=== PATIENT | male | born 1990 | race Caucasian/White ===

== ENCOUNTER 2023-05-02 03:08 | Emergency (ER) | payer SELFPAY ==
[2023-05-02 03:11] VITALS: BP 151/99; PULSE 85; RESP 16; TEMP 36.4; O2SAT 99; BMI 25.1
--- NOTE | 2023-05-02 03:26 | ED.URI1 ---
HPI - URI/Sore Throat General Chief Complaint: Upper Respiratory Infection Stated Complaint: COUGH Time Seen by Provider: 05/02/23 03:18 Source: patient Limitations: no limitations History of Present Illness HPI Narrative: Developed cold symptoms 4-5 days ago. No relief with OTC meds. Tonight he took a deep breath and had a vigorous cough and suddenly felt pain in the mid left back. Now it hurts to take a deep breath or to move the torso. No relief with tylenol. He is uncertain about fevers at home. He said that he felt hot since the pain started. Related Data Previous Rx's Medication Instructions Recorded cduzehlnupoopcz-asafnbtzhgmqyik-PO 5 ml PO Q6H PRN cold symptoms #118 05/02/23 2 mg-30 mg-10 mg/5 mL oral syrup mL (Bromfed DM) methocarbamol 750 mg tablet 750 mg PO Q6H PRN pain #30 tabs 05/02/23 nabumetone 750 mg tablet 750 mg PO BID PRN pain #14 tabs 05/02/23 Allergies Allergy/AdvReac Type Severity Reaction Status Date / Time No Known Drug Allergies Allergy Verified 05/02/23 03:13 PFSH PFS Social History Smoking status: Current every day smoker Exam Narrative Exam Narrative: Nurses notes and vital signs reviewed and patient is not hypoxic. afebrile General: Well-appearing and in no apparent distress. Skin: Warm, dry, no pallor noted. No rash. Head: Normocephalic, atraumatic. Neck: Supple, non-tender. cervical lymphadenopathy Eye: Pupils are equal, round and EOMI. No scleral icterus. Ears, Nose, Mouth, and Throat: TM are clear, mild nasal mucosal hypertrophy. Oral mucosa is moist, no posterior oropharynx erythema, uvula is mid-line Cardiovascular: Regular Rate and Rhythm without murmur, gallop or rub. Respiratory: No accessory muscle use or respiratory distress. Lungs are clear to auscultation, no wheezing, rales or rhonchi Back: No midline thoracic or lumbar vertebral tenderness. diffuse muscular tenderness to the posterior left torso just lateral to the thoracic spine Musculoskeletal: normal ROM Neurological: A&O x4. No cranial nerve dysfunction observed. No truncal ataxia. Moves all extremities. Sensation intact. Psychiatric: Cooperative and interactive. Normal mood and affect. Constitutional Vital Signs, click to edit/add: Last Vital Signs Temp 97.5 F L 05/02/23 03:11 Pulse 85 05/02/23 03:11 Resp 16 05/02/23 03:11 BP 151/99 H 05/02/23 03:11 Pulse Ox 99 05/02/23 03:11 O2 Del Method Room Air 05/02/23 03:11 Course Vital Signs Vital signs: Vital Signs Temperature 97.5 F L 05/02/23 03:11 Pulse Rate 85 05/02/23 03:11 Respiratory Rate 16 05/02/23 03:11 Blood Pressure 151/99 H 05/02/23 03:11 Pulse Oximetry 99 05/02/23 03:11 Oxygen Delivery Method Room Air 05/02/23 03:11 Temperature 97.5 F L 05/02/23 03:11 Pulse Rate 85 05/02/23 03:11 Respiratory Rate 16 05/02/23 03:11 Blood Pressure 151/99 H 05/02/23 03:11 Pulse Oximetry 99 05/02/23 03:11 Oxygen Delivery Method Room Air 05/02/23 03:11 MDM - URI/Sore Throat MDM Narrative Medical decision making narrative: patient presents with upper respiratory symptoms as well as pain in the left posterior torso after a coughing fit. He was given IM Toradol and oral Robaxin. He was discharged home with a prescription for Bromfed-DM, Relafen and Robaxin. Discharge Plan Discharge Chief Complaint: Upper Respiratory Infection Clinical Impression: Upper respiratory infection, Back pain Patient Disposition: Home, Self-Care Time of Disposition Decision: 03:29 Prescriptions / Home Meds: New nabumetone 750 mg tablet 750 mg PO BID PRN (Reason: pain) Qty: 14 0RF methocarbamol 750 mg tablet 750 mg PO Q6H PRN (Reason: pain) Qty: 30 0RF quibyiiihrotcln-oxpjyzxjd-GN [Bromfed DM] 2-30-10 mg/5 mL syrup 5 ml PO Q6H PRN (Reason: cold symptoms) Qty: 118 0RF Instructions: Upper Respiratory Infection (ED), Back Pain (ED) Stand Alone Forms: Portal Instructions Referrals: Rory Bassett DO [Primary Care Provider] - 1 week Discharge Date/Time: 05/02/23 04:01
[2023-05-02] MEDS: METHOCARBAMOL 500 MG TABLET 1000 MG PO (03:54)
[2023-05-02] MEDS: KETOROLAC TROMETHAMINE 60 MG/2 ML VIAL IM (03:55)
== END 2023-05-02 04:01 | disposition home or self-care (01) ==
PROVIDERS: Emergency Provider Emergency Medicine; PCP Family Medicine
DX: J06.9 Acute upper respiratory infection, unspecified (principal); M54.9 Dorsalgia, unspecified; F17.210 Nicotine dependence, cigarettes, uncomplicated
CPT/HCPCS: 96372; 99284

== ENCOUNTER 2024-02-12 12:11 | Outpatient (RCR) | payer OTHER, SELFPAY | END 2024-02-27 16:34 | disposition home or self-care (01) | LOC: PT 12:11 | PROVIDERS: PCP Family Medicine; Visit Provider Physician Assistant | DX: S83.92XD Sprain of unspecified site of left knee, subsequent encounter (principal) | CPT/HCPCS: 97010; 97014; 97110; 97112; 97162 ==

== ENCOUNTER 2024-06-09 06:44 | Emergency (ER) | payer SELFPAY ==
[2024-06-09] VITALS (9 sets, daily range): BP systolic 120–134; BP diastolic 87–93; PULSE 77–87; TEMP 36.6; O2SAT 95–97; BMI 26.5
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
--- NOTE | 2024-06-09 07:04 | XR_ITS ---
The [address] [address] Patient Name: JARRED ZAMBRANO MRN: [id number] date: 1990 Sex: M Assigned Patient Location: ER Current Patient Location: ER Accession/Order Number: [id number] Exam Date: 06/09/2024 07:05 Report Date: 06/09/2024 07:27 At the request of: LOPEZ SCHNEIDER Procedure: XR chest 1V EXAMINATION: XR chest 1V HISTORY: CP COMPARISON: XR chest 07/31/2021 FINDINGS: LUNGS: No significant pulmonary parenchymal abnormalities. VASCULATURE: No increased pulmonary vasculature. PLEURA: No pneumothorax, effusion, or pleural thickening. CARDIAC: No cardiomegaly or cardiac silhouette abnormality. MEDIASTINUM: No visible mass or adenopathy. BONES: No fracture or visible bone lesion. OTHER: Negative. XR/XR chest 1V IMPRESSION: 1. No acute cardiopulmonary process. Electronically authenticated by: DEBORAH FRYE Date: 06/09/2024 07:27
--- NOTE | 2024-06-09 07:15 | ECG_ITS ---
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
--- NOTE | 2024-06-09 07:16 | ED.CHESTPAI1 ---
HPI - Chest Pain General Chief Complaint: Chest Pain Stated Complaint: CHEST PAIN Time Seen by Provider: 06/09/24 07:03 Source: patient Mode of arrival: walk-in Limitations: no limitations History of Present Illness HPI narrative: 34-year-old male presents to the emergency department for chest pain and tingling in his left arm. It started about an hour ago shortly after having sex with his girlfriend. There was no injury. He has a history of anxiety but it has been years since he has had issues with that. No fever or cough or complaints of shortness of breath or back pain. The pain in his chest is much less than it was earlier. Related Data Allergies Allergy/AdvReac Type Severity Reaction Status Date / Time No Known Drug Allergies Allergy Verified 06/09/24 06:52 Review of Systems ROS Narrative A ten point review of systems is negative except as noted above. PFSH PFSH Social History Smoking status: Current every day smoker Little interest or pleasure in doing things: not at all Feeling down, depressed, or hopeless: not at all Exam Narrative Exam Narrative: Nurses note and vital signs reviewed and patient is not hypoxic. General: The patient appears in no apparent distress. Patient appears anxious Skin: Warm, dry, no pallor noted. There is no rash noted. Head: Normocephalic, atraumatic Eye: Normal conjunctiva, no drainage Ears, Nose, Mouth, and Throat: oral mucosa is moist. Nares patent. Cardiovascular: Regular Rate and Rhythm Respiratory: Patient is in no distress, no accessory muscle use, lungs are clear to auscultation, no wheezing, rales or rhonchi Back: non-tender GI: Soft and nontender Musculoskeletal: The patient has no evidence of calf tenderness, no pitting edema, symmetrical pulses noted bilaterally Neurological: A&O, normal speech Psychiatric: Cooperative Constitutional Vital Signs, click to edit/add: Last Vital Signs Temp 98 F 06/09/24 06:47 Pulse 80 06/09/24 08:15 Resp 20 06/09/24 08:15 BP 122/87 06/09/24 08:15 Pulse Ox 96 06/09/24 08:15 O2 Del Method Room Air 06/09/24 08:15 Course Vital Signs Vital signs: Vital Signs Temperature 98 F 06/09/24 06:47 Pulse Rate 86 06/09/24 06:47 Respiratory Rate 18 06/09/24 06:47 Blood Pressure 134/93 H 06/09/24 06:47 Pulse Oximetry 96 06/09/24 06:47 Oxygen Delivery Method Room Air 06/09/24 06:47 Temperature 98 F 06/09/24 06:47 Pulse Rate 80 06/09/24 08:15 Respiratory Rate 20 06/09/24 08:15 Blood Pressure 122/87 06/09/24 08:15 Pulse Oximetry 96 06/09/24 08:15 Oxygen Delivery Method Room Air 06/09/24 08:15 MDM - Chest Pain MDM Narrative Medical decision making narrative: His workup is negative and he feels much better after being given IV Ativan. I suspect his symptoms are due to anxiety. He is able to be discharged home and will follow-up with his doctor. Treatment diagnosis and follow-up were discussed with the patient. Differential Diagnosis Differential diagnosis: Likely pneumothorax, unstable angina pectoris, atypical chest pain, st elevation myocardial infarction, chest pain and other (Anxiety) Lab Data Attestation: I reviewed the patient's lab results. Labs: Lab Results 06/09/24 Range/Units 07:25 WBC 5.5 (4.0-11.0) 10^3/uL RBC 5.31 (4.70-6.10) 10^6/uL Hgb 16.3 (14.0-18.0) g/dL Hct 47.7 (42.0-54.0) % MCV 89.8 (80.0-94.0) fL MCH 30.7 (25.9-34.0) pg MCHC 34.2 (29.9-35.2) g/dL RDW 12.6 (11.0-15.0) % Plt Count 225 (150-450) 10^3/uL MPV 10.6 (9.5-13.5) fL Neut % (Auto) 60.3 (43.0-75.0) % Lymph % (Auto) 27.4 (20.5-60.0) % [place] % (Auto) 8.4 (1.7-12.0) % Eos % (Auto) 2.6 (0.9-7.0) % Baso % (Auto) 1.1 (0.2-2.0) % Neut # (Auto) 3.3 (1.4-6.5) 10^3/uL Lymph # (Auto) 1.5 (1.2-3.8) 10^3/uL [place] # (Auto) 0.5 (0.3-0.8) 10^3/uL Eos # (Auto) 0.1 (0.0-0.7) 10^3/uL Baso # (Auto) 0.1 (0.0-0.1) 10^3/uL Abs Immat Gran (auto) 0.01 (0.00-0.03) 10^3/uL Imm/Tot Granulo (auto) 0.2 (0.0-0.5) % Sodium 141 (136-145) mmol/L Potassium 4.2 (3.5-5.1) mmol/L Chloride 105 (98-107) mmol/L Carbon Dioxide 25.7 (21.0-32.0) mmol/L Anion Gap 14.5 BUN 9.0 (7.0-18.0) mg/dL Creatinine 1.07 (0.70-1.30) mg/dL Est GFR ( Amer) >60 (>=60 mL/min/1.73m^2) Est GFR (Non-Af Amer) >60 (>=60 mL/min/1.73m^2) BUN/Creatinine Ratio 8.4 Glucose 98 (74-106) mg/dL Calcium 8.7 (8.5-10.1) mg/dL Troponin I High Sens <4.0 L (4.0-76.1) pg/mL ECG Data Attestation: I personally reviewed and interpreted this ECG as follows: (EKG on my interpretation shows normal sinus rhythm with rate of 76 and no acute change) Heart Score History: Slightly/Non-Suspicious ECG: Normal Age: <45 years Risk Factors: No Risk Factors Troponin: <Normal Limit Total Heart Score Recommendations & Risks:: 0 Discharge Plan Discharge Chief Complaint: Chest Pain Clinical Impression: Chest pain Patient Disposition: Home, Self-Care Time of Disposition Decision: 08:20 Condition: Good Mode of Transportation: Private Vehicle Print Language: [place] Instructions: Chest Pain (ED) Referrals: DEBRA ZAMBRANO [Primary Care Provider] - 1 week
[2024-06-09] MEDS: LORAZEPAM 2 MG/ML VIAL 1 MG IV (07:31)
[2024-06-09 07:38] LABS: Basophils Absolute Auto 0.1 10^3/uL (0.0-0.1); Basophils Percent Auto 1.1 % (0.2-2.0); Eosinophils Absolute Auto 0.1 10^3/uL (0.0-0.7); Eosinophils Percent Auto 2.6 % (0.9-7.0); Hematocrit 47.7 % (42.0-54.0); Hemoglobin 16.3 g/dL (14.0-18.0); Immature Granulocytes Abs Auto 0.01 10^3/uL (0.00-0.03); Immature Granulocytes Pct Auto 0.2 % (0.0-0.5); Lymphocytes Absolute Auto 1.5 10^3/uL (1.2-3.8); Lymphocytes Percent Auto 27.4 % (20.5-60.0); Mean Corpuscular HGB Conc 34.2 g/dL (29.9-35.2); Mean Corpuscular Hemoglobin 30.7 pg (25.9-34.0); Mean Corpuscular Volume 89.8 fL (80.0-94.0); Mean Platelet Volume 10.6 fL (9.5-13.5); Monocytes Absolute Auto 0.5 10^3/uL (0.3-0.8); Monocytes Percent Auto 8.4 % (1.7-12.0); Neutrophils Absolute Auto 3.3 10^3/uL (1.4-6.5); Neutrophils Percent Auto 60.3 % (43.0-75.0); Platelet Count 225 10^3/uL (150-450); Red Blood Count 5.31 10^6/uL (4.70-6.10); Red Cell Distribution Width 12.6 % (11.0-15.0); White Blood Count 5.5 10^3/uL (4.0-11.0)
[2024-06-09 08:07] LABS: Anion Gap 14.5; BUN Creatinine Ratio 8.4; Calcium 8.7 mg/dL (8.5-10.1); Carbon Dioxide 25.7 mmol/L (21.0-32.0); Chloride 105 mmol/L (98-107); Estimated GFR (African America >60 (>=60 mL/min/1.73m^2); Estimated GFR (Non-African Ame >60 (>=60 mL/min/1.73m^2); Glucose 98 mg/dL (74-106); Potassium 4.2 mmol/L (3.5-5.1); Sodium 141 mmol/L (136-145); Troponin I High Sensitivity <4.0 pg/mL (4.0-76.1)
== END 2024-06-09 08:43 | disposition home or self-care (01) ==
PROVIDERS: Emergency Provider Emergency Medicine; PCP Family Medicine
DX: R07.9 Chest pain, unspecified (principal); F17.200 Nicotine dependence, unspecified, uncomplicated
CPT/HCPCS: 36415; 71045; 80048; 84484; 85025; 93005; 96374; 99285; J2060

== ENCOUNTER 2024-11-16 05:58 | Emergency (ER) | payer MEDICAID, SELFPAY ==
[2024-11-16 06:00] VITALS: BP 133/93; PULSE 88; TEMP 37.1; O2SAT 98; BMI 25.1
--- OUTSIDE RECORDS SUMMARY | 2024-11-16 06:14 | XMS_ITS | CCD ---
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 Name Role Phone Kuldip Zambrano Unavailable DO Kuldip Zambrano Primary Care Provider DO Oscar Patricio Emergency Provider [phone] SERJIO, DR ELIZABETH Primary Care Unavailable OSWALDO, [...] Unavailable DO Kuldip Zambrano Primary Care Provider [phone] MD Chito Triana Emergency Provider [phone] DO Rajesh Clarke Jr Attending Provider [phone] DO Kuldip Zambrano Primary Care Provider Tricia Resendiz DO Edkrystyna Attending Provider [phone] Tricia Resendiz Edkrystyna Attending Unavailable Tricia Resendiz, [...] 500 MG PO February 06, 2024 12:00am [place] (No Known Home Meds) (1 source) Start: 11-29-2021 [place] (No Known Home Meds) Active November 29, [...] 05-15-2017 Episodic Other aftercare (1 source) Other nursing home (current) drug therapy; Translations: [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] Onset: 01-16-2022 Episodic Residual codes; unclassified (1 source) Acquired absence of other specified parts of digestive tract; Translations: [ACQ ABSENCE OTH PART DIGESTV TRACT] Onset: 01-16-2022 Episodic Skull and face fractures (1 source) Fracture of tooth (traumatic), initial encounter for closed fracture; Translations: [FX TOOTH TRAUMAT INIT ENC CLOS FX] Onset: 01-16-2022 Episodic Substance-related disorders (1 source) Nicotine dependence, cigarettes, uncomplicated; Translations: [NICOTINE DEPEND CIGARETTES UNCOMP] Onset: 01-16-2022 Chronic Past or Other Problems Problem Classification Problem Date Documented Da te Episodic/Chronic Nonspecific chest pain (1 source) Chest pain, unspecified; Translations: [CHEST PAIN UNSPECIFIED] Onset: 08-01-2021 Episodic Other nervous system disorders (3 sources) Paresthesia of skin; Translations: [PARESTHESIA OF SKIN] Onset: 07-31-2021 Episodic Sprains and strains (20 sources) Sprain of left knee; Translations: [Sprain of unspecified site of left knee, initial encounter] Onset: 01-09-2024 12-09-2023 Episodic Superficial injury; contusion (6 sources) Abrasion of left elbow, initial encounter; Translations: [Abrasion of left elbow] Onset: 12-09-2023 02-06-2024 Episodic Results Test Name Value Interpretation Reference Range Facility MR knee LT wo conon 01-23-20 MR knee LT wo con [facility] [address] MRI Report Signed Patient: Jose Zambrano MR#: [id number] : 1990 Acct:[id number] Age/Sex: 33 / M ADM Date: 01/23/24 Loc: MR Room: Type: [facility] Attending Dr: Rajesh Clarke Jr, DO [...] Srinath Funk M.D.01/23/2024 8:01 PM Dictation Location: [facility] Transcribed By: [facility] 01/23/242000 Dictated By: Srinath Funk II, MD 01/23/241941 Signed By: 01/23/242000 Normal [facility] XR femur LT 2V*on 12-09-2023 XR femur LT 2V* [facility] [address] XRay Report Signed Patient: Jose Zambrano MR#: [id number] : 1990 Acct:[id number] Age/Sex: 33 / M ADM Date: 12/09/23 Loc: ER Room: Type: [facility] ER Attending Dr: Copies to: Chito Triana MD Ordering Provider: Chito Triana MD Date of Service: 12/09/23 XR/XR femur LT 2V*: nmhbv ([id number]) XR/XR knee LT 4V*: nbvhj ([id number]) XR/XR pelvis 1-2V: l/nb Single view of [...] Nathanael Ashby M.D.12/09/2023 12:10 PM Dictation Location: [place] [address] Transcribed By: CARIDAD 12/09/23 1210 Dictated By: Nathanael Ashby DO 12/09/23 1207 Signed By: 12/09/23 121 Normal [facility] Albumin [Mass/volume] in Ser um or PlasmaOrdered By: Oscar Patricio on 11-29-2021 Albumin [Mass/Vol] 4.4 g/dL 3.2-5.5 [facility] Amphetamine Screen Ql (U)Ord ered By: Oscar Patricio on 11-29-2021 Amphetamines Ql (U) Negative Negative [facility] Barbiturates [Presence] in U rineOrdered By: Oscar Patricio on 11-29-2021 Barbiturates Ql (U) Negative Negative [facility] Basophils Auto (Bld) [#/Vol] Ordered By: Oscar Patricio on 11-29-2021 Basophils (Bld) [#/Vol] 0.0 10*3/uL 0.0-0.2 [facility] Basophils/100 WBC Auto (Bld) Ordered By: Oscar Patricio on 11-29-2021 Basophils/100 WBC (Bld) 0.5 % [facility] Benzodiazepines [Presence] i n UrineOrdered By: Oscar Patricio on 11-29-2021 Benzodiazepines Ql (U) Negative [facility] Bilirubin Test strip Ql (U)O rdered By: Oscar Patricio on 11-29-2021 Bilirubin Ql (U) Negative Negative [facility] Blood hemoglobin measurement (mass/volume)Ordered By: Oscar Patricio on 11-29-2021 Hemoglobin (Bld) [Mass/Vol] 16.9 g/dL 13.0-17.0 [facility] Blood leukocytes automated c ount (number/volume)Ordered By: Oscar Patricio on 11-29-2021 WBC (Bld) [#/Vol] 7.0 10*3/uL 4.5-11.0 [facility] Cannabinoids [Presence] in U rine by Screen methodOrdered By: Oscar Patricio on 11-29-2021 Cannabinoids Screen Ql (U) Positive Negative [facility] Comment on above: These are unconfirme d results and should not be used for legal purposes. Drug Cut-Off Concentration: AMPH 1000 ng/mL NEFTAIL 200 ng/mL DON 200 ng/mL COCM 300 ng/mL OP 300 ng/mL PCP 25 ng/mL THC 20 ng/mL Color Auto (U)Ordered By: Michele Patricio on 11-29-2021 Color (U) Yellow Yellow [facility] Creatinine and Glomerular fi ltration rate.predicted panel (S/P/Bld)Ordered By: Oscar Patricio on 11-29-2021 Creatinine [Mass/Vol] 1.02 mg/dL 0.64-1.27 [facility] Eosinophils Auto (Bld) [#/Vo l]Ordered By: Oscar Patricio on 11-29-2021 Eosinophils (Bld) [#/Vol] 0.2 10*3/uL 0.0-0.45 [facility] Eosinophils/100 WBC Auto (Bl d)Ordered By: Oscar Patricio on 11-29-2021 Eosinophils/100 WBC (Bld) 2.9 % [facility] Erythrocyte distribution wid th Auto (RBC) [Ratio]Ordered By: Oscar Patricio on 11-29-2021 Erythrocyte distribution width (RBC) [Ratio] 12.7 % 12.0-14.8 [facility] Estimated glomerular filtrat ion rate (GFR) non- AmericanOrdered By: Oscar Patricio on 11-29-2021 GFR/1.73 sq M.predicted among non-blacks MDRD (S/P/Bld) [Vol rate/Area] > 60 mL/Min [facility] Globulin Calc (S) [Mass/Vol] Ordered By: Oscar Patricio on 11-29-2021 Globulin (S) [Mass/Vol] 3.0 g/dL [facility] Hematocrit Auto (Bld) [Volum e fraction]Ordered By: Oscar Patricio on 11-29-2021 Hematocrit (Bld) [Volume fraction] 49.0 % 38.8-50.0 [facility] Ketones Auto test strip (U) [Mass/Vol]Ordered By: Oscar Patricio on 11-29-2021 Ketones (U) [Mass/Vol] Negative Negative [facility] - Drug toxicology Ordered By: Oscar Patricio on 11-29-2021 Opiates Ql (U) Positive Negative [facility] - Hematology and Cell countsOrdered By: Oscar Patricio on 11-29-2021 Nucleated RBC/100 WBC (Bld) [Ratio] 0.1 % 0-0.5 [facility] Lymphocytes Auto (Bld) [#/Vo l]Ordered By: Oscar Patricio on 11-29-2021 Lymphocytes (Bld) [#/Vol] 1.3 10*3/uL 1.00-4.8 [facility] Lymphocytes/100 WBC Auto (Bl d)Ordered By: Oscar Patricio on 11-29-2021 Lymphocytes/100 WBC (Bld) 18.0 % [facility] MCH Auto (RBC) [Entitic mass ]Ordered By: Oscar Patricio on 11-29-2021 MCH (RBC) [Entitic mass] 31.1 pg 27.5-35.2 [facility] MCHC Auto (RBC) [Mass/Vol]Or dered By: Oscar Patricio on 11-29-2021 MCHC (RBC) [Mass/Vol] 34.4 g/dL 32.5-35.6 [facility] MCV Auto (RBC) [Entitic vol] Ordered By: Oscar Patricio on 11-29-2021 MCV (RBC) [Entitic vol] 90.4 fL 83.5-101 [facility] Monocytes Auto (Bld) [#/Vol] Ordered By: Oscar Patricio on 11-29-2021 Monocytes (Bld) [#/Vol] 0.4 10*3/uL 0.0-0.8 [facility] Monocytes/100 WBC Auto (Bld) Ordered By: Oscar Patricio on 11-29-2021 Monocytes/100 WBC (Bld) 6.2 % [facility] Neutrophils Auto (Bld) [#/Vo l]Ordered By: Oscar Patricio on 11-29-2021 Neutrophils (Bld) [#/Vol] 5.1 10*3/uL 1.8-7.7 [facility] Neutrophils/100 WBC Auto (Bl d)Ordered By: Oscar Patricio on 11-29-2021 Neutrophils/100 WBC (Bld) 72.4 % [facility] Nitrite Test strip Ql (U)Ord ered By: Oscar Patricio on 11-29-2021 Nitrite Ql (U) Negative Negative [facility] No Panel InformationOrdered By: Oscar Patricio on 11-29-2021 Estimated GFR () > 60 mL/Min [facility] Comment on above: GFR estimated refere nce range: According to KDOQI guidelines, <60 ml/min/1.73m2 is sufficient to diagnose a patient with chronic kidney disease. Pharmacy Creatinine Clearance (Chem 113.06 [facility] Phencyclidine Screen Ql (U)O rdered By: Oscar Patricio on 11-29-2021 Phencyclidine Ql (U) Negative Negative [facility] Platelet mean volume Auto (B ld) [Entitic vol]Ordered By: Oscar Patricio on 11-29-2021 Platelet mean volume (Bld) [Entitic vol] 8.5 fL 6.6-10.1 [facility] Platelets Auto (Bld) [#/Vol] Ordered By: Oscar Patricio on 11-29-2021 Platelets (Bld) [#/Vol] 216 10*3/uL 150-450 [facility] Protein Auto test strip (U) [Mass/Vol]Ordered By: Oscar Patricio on 11-29-2021 Protein (U) [Mass/Vol] Negative Negative [facility] Protein [Mass/volume] in Ser um or PlasmaOrdered By: Oscar Patricio on 11-29-2021 Protein [Mass/Vol] 7.4 g/dL 6.1-7.9 [facility] RBC Auto (Bld) [#/Vol]Ordere d By: Oscar Patricio on 11-29-2021 RBC (Bld) [#/Vol] 5.42 10*6/uL 3.90-5.60 [facility] Serum or plasma alanine garcia otransferase measurement without P-5'-P (enzymatic activiOrdered By: Oscar Patricio on 11-29-2021 ALT No additional P-5'-P [Catalytic activity/Vol] 51 U/L 10-60 [facility] Serum or plasma albumin/glob ulin mass ratioOrdered By: Oscar Patricio on 11-29-2021 Albumin/Globulin [Mass ratio] 1.5 {ratio} [facility] Serum or plasma alkaline mickey sphatase measurement (enzymatic activity/volume)Ordered By: Oscar Patricio on 11-29-2021 ALP [Catalytic activity/Vol] 67 U/L 32-92 [facility] Serum or plasma aspartate am inotransferase measurement (enzymatic activity/volume)Ordered By: Oscar Patricio on 11-29-2021 AST [Catalytic activity/Vol] 35 U/L 10-42 [facility] Serum or plasma calcium fercho urement (mass/volume)Ordered By: Oscar Patricio on 11-29-2021 Calcium [Mass/Vol] 9.4 mg/dL 8.2-10.2 [facility] Serum or plasma chloride suyapa surement (moles/volume)Ordered By: Oscar Patricio on 11-29-2021 Chloride [Moles/Vol] 100 mmol/L 95-114 [facility] Serum or plasma ethanol fercho urement (mass/volume)Ordered By: Oscar Patricio on 11-29-2021 Ethanol [Mass/Vol] mg/dL [facility] Ethanol [Mass/Vol] TNP [facility] Comment on above: Test not performed Serum or plasma glucose fercho urement (mass/volume)Ordered By: Oscar Patricio on 11-29-2021 Glucose [Mass/Vol] 95 mg/dL 70-100 [facility] Comment on above: ADA recommended refe rence range Random Glucose Reference Range is dependent on time and content of last meal. Glucose of more than 200 mg/dL in a nonstressed, ambulatory subject supports the diagnosis of Diabetes Mellitus. Serum or plasma potassium me asurement (moles/volume)Ordered By: Oscar Patricio on 11-29-2021 Potassium [Moles/Vol] 3.7 mmol/L 3.5-5.1 [facility] Serum or plasma sodium measu rement (moles/volume)Ordered By: Oscar Patricio on 11-29-2021 Sodium [Moles/Vol] 136 mmol/L 136-146 [facility] Serum or plasma total biliru bin measurement (mass/volume)Ordered By: Oscar Patricio on 11-29-2021 Bilirubin [Mass/Vol] 1.1 mg/dL 0.3-1.2 [facility] Serum or plasma total carbon dioxide measurement (moles/volume)Ordered By: Oscar Patricio on 11-29-2021 CO2 [Moles/Vol] 25.0 mmol/L 22.0-30.0 [facility] Serum or plasma urea nitroge n measurement (mass/volume)Ordered By: Oscar Patricio on 11-29-2021 Urea nitrogen [Mass/Vol] 9 mg/dL 9-23 [facility] Specific gravity Auto test s trip (U) [Rel density]Ordered By: Oscar Patricio on 11-29-2021 Specific gravity (U) [Rel density] 1.004 1.001-1.030 [facility] Urine clarity by refractomet ry automatedOrdered By: Oscar Patricio on 11-29-2021 Clarity Refractometry automated (U) Clear Clear [facility] Urine cocaine detectionOrder ed By: Oscar Patricio on 11-29-2021 Cocaine Ql (U) Negative Negative [facility] Urine glucose measurement by automated test strip (mass/volume)Ordered By: Oscar Patricio on 11-29-2021 Glucose Auto test strip (U) [Mass/Vol] Normal mg/dL Normal [facility] Urine hemoglobin detection b y automated test stripOrdered By: Oscar Patricio on 11-29-2021 Hemoglobin Auto test strip Ql (U) Negative Negative [facility] Urine leukocyte esterase det ection by automated test stripOrdered By: Oscar Patricio on 11-29-2021 Leukocyte esterase Auto test strip Ql (U) Negative Negative [facility] Urobilinogen Auto test strip (U) [Mass/Vol]Ordered By: Oscar Patricio on 11-29-2021 Urobilinogen (U) [Mass/Vol] Normal mg/dL Normal [facility] pH Auto test strip (U)Ordere d By: Oscar Patricio on 11-29-2021 pH (U) 6.5 [pH] 5.0-9.0 [facility] CBC AUTO DIFFon 07-31-2021 BASO # 0.1 103/ul Normal 0.0-0.1 [facility] Comment on above: Performed By: #### C BC #### [facility] [address] [place] [address] Dr. Terence Verma Basophils/100 WBC (Bld) 0.8 % Normal 0.2-2.0 [facility] Comment on above: Performed By: #### C BC #### [facility] [address] [place] [address] Dr. Terence Verma EO # 0.4 103/ul Normal 0.0-0.7 [facility] Comment on above: Performed By: #### C BC #### [facility] [address] [place] [address] Dr. Terence Verma Eosinophils/100 WBC (Bld) 5.3 % Normal 0.9-7.0 [facility] Comment on above: Performed By: #### C BC #### [facility] [address] [place] [address] Dr. Terence Verma Erythrocyte distribution width (RBC) [Ratio] 12.8 % Normal 11.0-15.0 [facility] Comment on above: Performed By: #### C BC #### [facility] [address] [place] [address] Dr. Terence Verma Hematocrit (Bld) [Volume fraction] 47.9 % Normal 42.0-54.0 [facility] Comment on above: Performed By: #### C BC #### [facility] [address] [place] [address] Dr. Terence Verma Hemoglobin (Bld) [Mass/Vol] 16.4 g/dL Normal 14.0-18.0 [facility] Comment on above: Performed By: #### C BC #### [facility] [address] [place] [address] Dr. Terence Verma IG # 0.02 10e3/ul Normal 0.00-0.03 [facility] Comment on above: Performed By: #### C BC #### [facility] [address] [place] [address] Dr. Terence Verma IG % 0.3 % Normal 0.0-0.5 [facility] Comment on above: Performed By: #### C BC #### [facility] [address] [place] [address] Dr. Terence Verma LYMPH # 2.4 103/ul Normal 1.2-3.8 [facility] Comment on above: Performed By: #### C BC #### [facility] [address] [place] [address] Dr. Terence Verma Lymphocytes/100 WBC (Bld) 30.4 % Normal 20.5-60.0 [facility] Comment on above: Performed By: #### C BC #### [facility] [address] [place] [address] Dr. Terence Verma MANUAL DIFF REQ NO Normal [facility] Comment on above: Performed By: #### C BC #### [facility] [address] [place] [address] Dr. Terence Verma MCH (RBC) [Entitic mass] 30.7 pg Normal 25.9-34.0 [facility] Comment on above: Performed By: #### C BC #### [facility] [address] [place] [address] Dr. Terence Verma MCHC (RBC) [Mass/Vol] 34.2 g/dL Normal 29.9-35.2 [facility] Comment on above: Performed By: #### C BC #### [facility] [address] [place] [address] Dr. Terence Verma MCV (RBC) [Entitic vol] 89.5 fL Normal 80.0-94.0 [facility] Comment on above: Performed By: #### C BC #### [facility] [address] [place] [address] Dr. Terence Verma MONO # 0.6 103/ul Normal 0.3-0.8 [facility] Comment on above: Performed By: #### C BC #### [facility] [address] [place] [address] Dr. Terence Verma Monocytes/100 WBC (Bld) 7.8 % Normal 1.7-12.0 [facility] Comment on above: Performed By: #### C BC #### [facility] [address] [place] [address] Dr. Terence Verma NEUT # 4.4 103/ul Normal 1.4-6.5 [facility] Comment on above: Performed By: #### C BC #### [facility] [address] [place] [address] Dr. Terence Verma Neutrophils/100 WBC (Bld) 55.4 % Normal 43.0-75.0 [facility] Comment on above: Performed By: #### C BC #### [facility] [address] [place] [address] Dr. Terence Verma Platelet mean volume (Bld) [Entitic vol] 10.0 fL Normal 9.5-13.5 [facility] Comment on above: Performed By: #### C BC #### [facility] [address] [place] [address] Dr. Terence Verma PLT 196 103/ul Normal 150-450 [facility] Comment on above: Performed By: #### C BC #### [facility] [address] [place] [address] Dr. Terence Verma RBC 5.35 106/ul Normal 4.70-6.10 [facility] Comment on above: Performed By: #### C BC #### [facility] [address] [place] [address] Dr. Terence Verma WBC 7.9 103/ul Normal 4.0-11.0 [facility] Comment on above: Performed By: #### C BC #### [facility] [address] [place] [address] Dr. Terence Verma PROF 14(COMP METB)on 022 Albumin [Mass/Vol] 4.1 g/dL Normal 3.5-5.0 [facility] Comment on above: Performed By: #### C MP #### [facility] [address] [place] [address] Dr. Terence Verma Albumin/Globulin [Mass ratio] 1.3 {ratio} Normal [facility] Comment on above: Performed By: #### C MP #### [facility] [address] [place] [address] Dr. Terence Verma ALP [Catalytic activity/Vol] 72 U/L Normal 38-126 [facility] Comment on above: Performed By: #### C MP #### [facility] [address] [place] [address] Dr. Terence Verma ALT [Catalytic activity/Vol] 72 U/L Normal 21-72 [facility] Comment on above: Performed By: #### C MP #### [facility] [address] [place] [address] Dr. Terence Verma Anion gap [Moles/Vol] 13.1 mmol/L Normal [facility] Comment on above: Performed By: #### C MP #### [facility] [address] [place] [address] [address] Terence Verma AST [Catalytic activity/Vol] 31 U/L Normal 17-59 [facility] Comment on above: Performed By: #### C MP #### [facility] [address] [place] [address] [address] Terence Verma Bilirubin [Mass/Vol] 0.7 mg/dL Normal 0.2-1.3 [facility] Comment on above: Performed By: #### C MP #### [facility] [address] [place] [address] [address] Terence Verma Calcium [Mass/Vol] 8.7 mg/dL Normal 8.4-10.2 [facility] Comment on above: Performed By: #### C MP #### [facility] [address] [place] [address] [address] Terence Verma Chloride [Moles/Vol] 103 mmol/L Normal 98-107 [facility] Comment on above: Performed By: #### C MP #### [facility] [address] [place] [address] [address] Terence Verma CO2 [Moles/Vol] 26.1 mmol/L Normal 22.0-30.0 [facility] Comment on above: Performed By: #### C MP #### [facility] [address] [place] [address] [address] Terence Verma Creatinine [Mass/Vol] 1.02 mg/dL Normal 0.66-1.25 [facility] Comment on above: Performed By: #### C MP #### [facility] [address] [place] [address] Dr. Terence Verma EGFR-AF WALLISIAN >60 Normal >=60 [facility] Comment on above: Performed By: #### C MP #### [facility] [address] [place] [address] [address] Terence Verma EGFR-NON AF WALLISIAN >60 Normal >=60 [facility] Comment on above: Performed By: #### C MP #### [facility] [address] [place] [address] [address] Terence Verma Globulin (S) [Mass/Vol] 3.2 g/dL Normal [facility] Comment on above: Performed By: #### C MP #### [facility] [address] [place] [address] [address] Terence Verma Glucose [Mass/Vol] 102 mg/dL Normal 74-106 [facility] Comment on above: Performed By: #### C MP #### [facility] [address] [address] [address] Terence Verma Potassium [Moles/Vol] 4.2 mmol/L Normal 3.4-5.0 [facility] Comment on above: Performed By: #### C MP #### [facility] [address] [place] [address] [address] Terence Verma Protein [Mass/Vol] 7.3 g/dL Normal 6.1-8.2 [facility] Comment on above: Performed By: #### C MP #### [facility] [address] [address] [address] Terence Verma Sodium [Moles/Vol] 138 mmol/L Normal 137-145 [facility] Comment on above: Performed By: #### C MP #### [facility] [address] [address] [address] Terence Verma Urea nitrogen [Mass/Vol] 14.0 mg/dL Normal 9.0-20.0 [facility] Comment on above: Performed By: #### C MP #### [facility] [address] [address] [address] Terence Verma Urea nitrogen/Creatinine [Mass ratio] 13.7 mg/mg Normal [facility] Comment on above: Performed By: #### C MP #### [facility] [address] [place] [address] [address] Terence Verma TROPONIN, HIGH SENSITIVITYon 07-31-2021 HSTROP 6.0 pg/mL Normal 4.0-42.2 [facility] Comment on above: Result Comment: CUT- OFF POINTS HAVE BEEN ESTABLISHED BASED ON THE FOURTH UNIVERSAL DEFINITIONS OF MYOCARDIAL INFARCTION. THE UPPER REFERENCE LIMIT (URL) OF TROPONIN, DEFINED THE 99TH PERCENTILE OF cTnI DISTRIBUTION IN A REFERENCE POPULATION, HAS BEEN CONFIRMED THE DECISION THRESHOLD FOR [place] DIAGNOSIS. Performed By: #### H STROPN #### [facility] [address] [address] [address] Terence Verma XR CHEST 1 Von 07-31-2021 XR CHEST 1 V EXAM: XR CHEST 1 V HISTORY: CHEST PAIN, UNSPECIFIED COMPARISON: Chest x-ray 11/13/2017 TECHNIQUE: Single frontal view chest x-ray FINDINGS: No lobar consolidation, large pleural effusions, pneumothorax, or acute bony abnormality. Cardiac size unremarkable. IMPRESSION: No radiographic evidence for acute chest abnormality. Electronically authenticated by: KATLYN SALDIVAR Date: 2021-07-31 01:45 Normal [facility] Vital Signs Date Time Vital Sign Value Performing Clinician Facility 12-09-2023 12:55-0400 Diastolic blood pressure 61 mm[Hg] DO Kuldip Kuns Work Phone: [facility] 12-09-2023 12:55-0400 Heart rate 88 /min DO Kuldip Kuns Work Phone: [facility] 12-09-2023 12:55-0400 Respiratory rate 20 /min DO Kuldip Kuns Work Phone: [facility] 12-09-2023 12:55-0400 SaO2% (BldA) [Mass fraction] 97 % DO Kuldip Kuns Work Phone: [facility] 12-09-2023 12:55-0400 Systolic blood pressure 127 mm[Hg] DO Kuldip Kuns Work Phone: [facility] 12-09-2023 11:30-0400 Body height 180.34 cm DO Kuldip Kuns Work Phone: [facility] 12-09-2023 11:30-0400 Body temperature 98.3 [degF] DO Kuldip Kuns Work Phone: [facility] 12-09-2023 11:30-0400 Body weight 83.91 kg DO Kuldip Kuns Work Phone: [facility] 11-29-2021 11:10-0400 Body temperature 98.3 [degF] DO Kuldip Kuns Work Phone: [facility] 11-29-2021 11:10-0400 Diastolic blood pressure 82 mm[Hg] DO Kuldip Kuns Work Phone: [facility] 11-29-2021 11:10-0400 Heart rate 77 /min DO Kuldip Kuns Work Phone: [facility] 11-29-2021 11:10-0400 Respiratory rate 18 /min DO Kuldip Kuns Work Phone: [facility] 11-29-2021 11:10-0400 SaO2% (BldA) [Mass fraction] 98 % DO Kuldip Kuns Work Phone: [facility] 11-29-2021 11:10-0400 Systolic blood pressure 116 mm[Hg] DO Kuldip Kuns Work Phone: [facility] 11-29-2021 07:32-0400 Body height 182.88 cm DO Kuldip Kuns Work Phone: [facility] 11-29-2021 07:32-0400 Body mass index (BMI) [Ratio] 23.7 kg/m2 DO Kuldip Kuns Work Phone: [facility] 11-29-2021 07:32-0400 Body weight 79.37 kg DO Kuldip Kuns Work Phone: [facility] 05-23-2021 10:15-0500 Body height 182.88 cm Kuldip Kuns Other [employer] [facility] Other 05-23-2021 10:15-0500 Body mass index (BMI) [Ratio] 24.95 kg/m2 Kuldip Kuns Other [facility] Other 05-23-2021 10:15-0500 Body weight 83.46 kg Kuldip Kuns Other [facility] Other 05-23-2021 10:15-0500 Diastolic blood pressure 70 mm[Hg] Kuldip Kuns Other [facility] Other 05-23-2021 10:15-0500 Respiratory rate 16 /min Kuldip Kuns Other [facility] Other 05-23-2021 10:15-0500 SaO2% (BldA) [Mass fraction] 96 % Kuldip Kuns Other [facility] Other 05-23-2021 10:15-0500 Systolic blood pressure 120 mm[Hg] Kuldip Kuns Other [facility] Other 05-02-2021 14:15-0500 Body height 182.88 cm Kuldip Kuns Other [facility] Other 05-02-2021 14:15-0500 Body mass index (BMI) [Ratio] 24.82 kg/m2 Kuldip Kuns Other [facility] Other 05-02-2021 14:15-0500 Body weight 83.01 kg Kuldip Kuns Other [facility] Other 05-02-2021 14:15-0500 Diastolic blood pressure 70 mm[Hg] Kuldip Kuns Other [facility] Other 05-02-2021 14:15-0500 Respiratory rate 16 /min Kuldip Kuns Other [facility] Other 05-02-2021 14:15-0500 SaO2% (BldA) [Mass fraction] 96 % Kuldip Richardss Other [facility] Other 05-02-2021 14:15-0500 Systolic blood pressure 110 mm[Hg] Kuldipmanny Richardss Other [facility] Other Encounters Encounter Date Encounter Type Care Provider Facility Start: 03-19-2024 End: 03-19-2024 ambulatory DO Kuldip Kuns Work Phone: [facility] Work Phone: Start: 03-19-2024 End: 03-19-2024 Patient encounter procedure DO Kuldip Kuns Work Phone: [facility] Work Phone: Start: 02-06-2024 End: 02-06-2024 ambulatory DO Kuldip Kuns Work Phone: [facility] Work Phone: Start: 02-06-2024 End: 02-06-2024 Patient encounter procedure DO Kuldip Kuns Work Phone: [facility] Work Phone: Start: 01-30-2024 End: 01-30-2024 ambulatory DO Kuldip Kuns Work Phone: [facility] Work Phone: Start: 01-30-2024 End: 01-30-2024 Patient encounter procedure DO Kuldip Kuns Work Phone: [facility] [address] Work Phone: Start: 01-23-2024 End: 01-23-2024 Patient encounter procedure DO Kuldip Kuns Work Phone: [facility] [place] Work Phone: Start: 01-23-2024 End: 01-23-2024 ambulatory DO Kuldip Kuns Work Phone: [facility] Work Phone: Start: 01-17-2024 End: 01-17-2024 ambulatory DO Kuldip Kuns Work Phone: [facility] Work Phone: Start: 01-17-2024 End: 01-17-2024 Discharged Recurring DO Kuldip Kuns Work Phone: [facility]Physical [facility] [place] Start: 01-17-2024 Registered Recurring DO Kuldip Kuns Work Phone: [facility] [place] Start: 01-10-2024 Registered Recurring DO Kuldip Kuns Work Phone: [facility] [place] Start: 01-09-2024 End: 01-09-2024 ambulatory DO Kuldip Kuns Work Phone: [facility] Work Phone: Start: 01-09-2024 End: 01-09-2024 Patient encounter procedure DO Kuldip Kuns Work Phone: [facility] [address] Work Phone: Start: 12-27-2023 Registered Recurring DO Kuldip Kuns Work Phone: [facility] [place] Start: 12-12-2023 End: 12-12-2023 ambulatory DO Kuldip Kuns Work Phone: [facility] Work Phone: Start: 12-12-2023 End: 12-12-2023 Patient encounter procedure DO Kuldip Kuns Work Phone: [facility] [address] Work Phone: Start: 12-09-2023 End: 12-09-2023 Emergency department patient visit DO Kuldip Mauricedilia Work Phone: [facility] Work Phone: Start: 01-14-2022 End: 01-14-2022 ambulatory CORNELIO JESUS Facility:[facility] Start: 11-29-2021 End: 11-29-2021 Emergency department patient visit DO Kuldip Mauricedilia Work Phone: [facility] Start: 07-31-2021 End: 07-31-[address] GLENN ZAMBRANO Facility:[facility] Start: 07-24-2021 End: 07-24-2021 ambulatory Kuldip Richardss Other [facility] Other Start: 07-24-2021 Telephone encounter Kuldipmanny Richardss [facility] [place] Start: 06-27-2021 End: 06-27-2021 ambulatory Kuldip Maurices Other [facility] Other Start: 06-27-2021 Telephone encounter Kuldipmanny Richardss [facility] Start: 05-23-2021 End: 05-23-2021 ambulatory Kuldip Richardss Other [facility] Other Start: 05-23-2021 Office outpatient visit 5 minutes Kuldip Kuns [facility] Start: 05-04-2021 End: 05-04-2021 ambulatory Kuldip Maurices Other [facility] Other Start: 05-04-2021 Telephone encounter Kuldip Kuns [facility] Start: 05-02-2021 End: 05-02-2021 ambulatory Kuldip Kuns Other [facility] Other Start: 05-02-2021 Office outpatient visit 10 minutes Kuldip Kuns [facility] Start: 04-28-2021 End: 04-28-[address] LESLIE [...] Date Care Activity Detail Author Patient Education [facility] Work Phone: Patient referral [facility] Work Phone: Immunizations Immunization Date Immunization Notes Care Provider Fa cili 05-15-2017 tetanus toxoid, redu josh diphtheria toxoid, and acellular pertussis vaccine, adsorbed DO Kuldip Zambrano Work Phone: [facility] Payers Date Payer Category Payer Self-pay [id number] 1988 Unknown [id number] 1988 Unknown [id number] 1988 Unknown [id number] 1959 Unknown [id number] Unknown [id number] Unknown Citlali Jain [facility] [id number] Unknown [id number] Unknown [id number] Unknown [id number] Unknown [id number] Unknown [id number] Unknown [id number] Worker's Compensation [facility] [id number] Social History Date Type Detail Facility Unknown if ever smoked [facility] Other Sex Assigned At Sex Assigned At Bir th [facility] Other Start: 11-29-2021 End: 12-09-2023 Tobacco smoking status [facility] Smoker (finding) [facility] Start: 1990 Sex Assigned At Male F [facility] Evaluation note 05-23-2021 Note Date & Type [...] doesn't feel he needs it. Refill e-scribed. [facility] Other Evaluation note 05-02-2021 Note Date & [...] to get this done at some point. [facility] Other Evaluation note Note Date & Type Note Facility Evaluation note No Information [facility] [employer] Other Evaluation note Note Date & Type Note Facility Evaluation note No assessment information availa ble [facility] Work Phone: Evaluation note Note Date & Type Note Facility Evaluation note Diagnosis Onset Date Sprain of unspecified site o f left knee, initial encounter acute [facility] Work Phone: Evaluation note Note Date & Type Note Facility Evaluation note Diagnosis Onset Date Sprain of unspecified site o f left knee, initial encounter acute Sprain of medial collateral ligament of left knee acute Sprain of unspecified site o f left knee, initial encounter acute [facility] Work Phone: History general Narrative - Reported Note Date & Type Note Facility History general Narrative - Reported Type Surgical History Cholecystectomy 2016 Hospitalization History [place] for gallbladder 2016 [facility] Other Hospital Discharge instructions Note Date & [...] 911 or return to the emergency department. [facility] Work Phone: Hospital Discharge instructions Note Date & Type Note Facility Hospital Discharge instructions Additional Instructions Knee immobilizer and crutches no weightbearing and follow-up with Dr. Rand in 3 to 5 days Return if symptoms are worse [facility] Work Phone: Reason for Referral Reason *FU 05/09 consult Diagnosis 1 Anxiety (F41.9) Referral Organization [facility] [place] Referring Provider First Name Kuldip Referring Provider Last Name Serjio Referring Provider Specialty Family Prac terence Referred Organization [facility] Valerie Referred Address [address],[facility],[place],[address] Referred Provider Specialty Psychiatry Referral Priority Routine General Notes Randolph Abdi 11/2020 01:33:20 PM >Patient lives in [facility] Mildred 05/02/2021 01:39:25 PM >OK, [facility] you for the update. [facility] 03:27[facility]55 PM >Referral was [...] S50.312A L knee sprain s83.93xa S83.92XA, S50.312A [facility] DOI 12/09/23 LT KNEE SPRAIN Reason for Visit Sprain of unspecifie d site of left knee, initial encounter Chief Complaint S83.92XA, S50.312A L knee sprain s83.93xa S83.92XA, S50.312A [facility] DOI 12/09/23 LT KNEE SPRAIN 6 [...] wiseman DATE CREATED AUTHOR AUTHOR'S OLIVERIOIZ ATION 06/15/2024 [facility] FOR RECORDS PERTAINING TO PATIENTS [...] BE BASED ON THE PRIMARY CLINICAL RECORDS. [facility] [employer] provides no warranty or guarantee of the accuracy or completeness of information in this document.
--- NOTE | 2024-11-16 06:50 | ED.ANXIETY1 ---
Documented by User: Brad Sung MD 11/17/24 01:15 HPI - Anxiety General Chief Complaint: Anxiety Stated Complaint: PSYCHIATRIC ISSUE Time Seen by Provider: 11/16/24 06:33 Source: patient Mode of arrival: walk-in History of Present Illness HPI narrative: patient presents complaining of anxiety ongoing since last PM. Feels short of breath and just anxious. Increased stress at home now that his girlfriend and her son are living with him. Past history of anxiety. Denies depression or thoughts of harming himself. Denies overdose or past in patient psych admissions. Denies taking any medications regularly for mental health Related Data Previous Rx's ?Medication ?Instructions ?Recorded hydroxyzine HCl 50 mg tablet 50 mg PO TID PRN itching #10 tabs 11/16/24 Allergies Allergy/AdvReac Type Severity Reaction Status Date / Time No Known Drug Allergies Allergy Verified 06/09/24 06:52 Review of Systems ROS Status of ROS 10 or more systems reviewed and unremarkable except as noted in history and below PFSH PFSH Social History Smoking status: Current every day smoker Little interest or pleasure in doing things: not at all Feeling down, depressed, or hopeless: not at all Exam Constitutional Vital Signs, click to edit/add: Last Vital Signs Temp 98.7 F 11/16/24 06:00 Pulse 73 11/16/24 09:30 Resp 16 11/16/24 09:30 BP 135/85 11/16/24 09:30 Pulse Ox 99 11/16/24 09:30 O2 Del Method Room Air 11/16/24 09:30 Common normals: oriented x3, healthy appearing, alert and well nourished General appearance: anxious HENMT Common normals: normocephalic and head/scalp atraumatic Eye Common normals: EOMs intact bilaterally and conjunctivae normal Respiratory Common normals: normal respiratory effort, no retractions, no use of accessory muscles and clear to auscultation bilaterally Cardio Common normals: regular rate, regular rhythm, S1 normal heart sound and S2 normal heart sound GI Common normals: Normal to inspection, nondistended, normoactive bowel sounds present, soft to palpation and non-tender Extremity Common normals: normal to inspection and full ROM Neuro Common normals: oriented x3, CN's II-XII intact bilaterally, moves all extremities and no focal motor deficits Psych Appearance: grossly normal Course Vital Signs Vital signs: Vital Signs Temperature 98.7 F 11/16/24 06:00 Pulse Rate 88 11/16/24 06:00 Respiratory Rate 18 11/16/24 06:00 Blood Pressure 133/93 H 11/16/24 06:00 Pulse Oximetry 98 11/16/24 06:00 Oxygen Delivery Method Room Air 11/16/24 06:00 Temperature 98.7 F 11/16/24 06:00 Pulse Rate 73 11/16/24 09:30 Respiratory Rate 16 11/16/24 09:30 Blood Pressure 135/85 11/16/24 09:30 Pulse Oximetry 99 11/16/24 09:30 Oxygen Delivery Method Room Air 11/16/24 09:30 MDM - Anxiety MDM Narrative Medical decision making narrative: patient presents with anxiety attack. Workup initiated and care transferred to oncoming physician. No history of depression or suicidal thoughts and denies taking any street drugs or stimulants. labs ordered along with dose of vistaril Lab Data Labs: Lab Results 11/16/24 11/16/24 Range/Units 06:59 07:53 WBC 6.6 (4.0-11.0) 10^3/uL RBC 5.50 (4.70-6.10) 10^6/uL Hgb 17.4 (14.0-18.0) g/dL Hct 48.8 (42.0-54.0) % MCV 88.7 (80.0-94.0) fL MCH 31.6 (25.9-34.0) pg MCHC 35.7 H (29.9-35.2) g/dL RDW 12.8 (11.0-15.0) % Plt Count 231 (150-450) 10^3/uL MPV 10.1 (9.5-13.5) fL Neut % (Auto) 66.2 (43.0-75.0) % Lymph % (Auto) 22.1 (20.5-60.0) % [place] % (Auto) 5.6 (1.7-12.0) % Eos % (Auto) 4.5 (0.9-7.0) % Baso % (Auto) 1.1 (0.2-2.0) % Neut # (Auto) 4.4 (1.4-6.5) 10^3/uL Lymph # (Auto) 1.5 (1.2-3.8) 10^3/uL [place] # (Auto) 0.4 (0.3-0.8) 10^3/uL Eos # (Auto) 0.3 (0.0-0.7) 10^3/uL Baso # (Auto) 0.1 (0.0-0.1) 10^3/uL Abs Immat Gran (auto) 0.03 (0.00-0.03) 10^3/uL Imm/Tot Granulo (auto) 0.5 (0.0-0.5) % Sodium 140 (136-145) mmol/L Potassium 4.2 (3.5-5.1) mmol/L Chloride 103 (98-107) mmol/L Carbon Dioxide 28.9 (21.0-32.0) mmol/L Anion Gap 12.3 BUN 12.0 (7.0-18.0) mg/dL Creatinine 1.14 (0.70-1.30) mg/dL Est GFR ( Amer) >60 (>=60 mL/min/1.73m^2) Est GFR (Non-Af Amer) >60 (>=60 mL/min/1.73m^2) BUN/Creatinine Ratio 10.5 Glucose 107 H (74-106) mg/dL Calcium 9.2 (8.5-10.1) mg/dL Total Bilirubin 0.8 (0.2-1.0) mg/dL AST 42 H (15-37) U/L ALT 82 H (16-63) U/L Alkaline Phosphatase 115 (46-116) U/L Total Protein 7.8 (6.4-8.2) g/dL Albumin 4.1 (3.4-5.0) g/dL Globulin 3.7 g/dL Albumin/Globulin Ratio 1.1 Salicylates <2.8 (<=19.9) mg/dL Urine Opiates Screen Negative (NEGATIVE) Ur Buprenorphine Scrn Negative (NEGATIVE) Ur Oxycodone Screen Negative (NEGATIVE) Urine Methadone Screen Negative (NEGATIVE) Acetaminophen <2.0 L (10.0-30.0) ug/mL Ur Barbiturates Screen Negative (NEGATIVE) U Tricyclic Antidepress Negative (NEGATIVE) Ur Phencyclidine Scrn Negative (NEGATIVE) Ur Amphetamines Screen Negative (NEGATIVE) U Methamphetamines Scrn Negative (NEGATIVE) U Benzodiazepines Scrn Negative (NEGATIVE) Urine Cocaine Screen Negative (NEGATIVE) U Cannabinoids Screen Positive A (NEGATIVE) Ethanol Quant <3 mg/dL Discharge Plan Discharge Stand Alone Forms: Work/School Release Chief Complaint: Anxiety Clinical Impression: Acute anxiety Patient Disposition: Home, Self-Care Time of Disposition Decision: 09:23 Condition: Fair Mode of Transportation: Private Vehicle Prescriptions / Home Meds: New hydroxyzine HCl 50 mg tablet 50 mg PO TID PRN (Reason: itching) Qty: 10 0RF Print Language: Afghan Instructions: Panic Disorder (ED), Anxiety (ED) Additional Instructions: He has Vistaril as needed for anxiety or stress. You will speak to [facility] tomorrow at 4 PM Follow-up with your PCP for further recommendations as well. Referrals: [facility] [Other] - 1 week DEBRA BASSETT [Primary Care Provider, Family Practice] - 1 week Behavioral [facility]ire [Physician, Behavioral Health] - 1 week Discharge Date/Time: 11/16/24 09:30 Documented by User: Nathanael Shaw MD 11/16/24 09:32 HPI - Anxiety General Chief Complaint: Anxiety Stated Complaint: PSYCHIATRIC ISSUE Time Seen by Provider: 11/16/24 06:33 Related Data Previous Rx's ?Medication ?Instructions ?Recorded hydroxyzine HCl 50 mg tablet 50 mg PO TID PRN itching #10 tabs 11/16/24 Allergies Allergy/AdvReac Type Severity Reaction Status Date / Time No Known Drug Allergies Allergy Verified 06/09/24 06:52 PFSH PFSH Social History Smoking status: Current every day smoker Little interest or pleasure in doing things: not at all Feeling down, depressed, or hopeless: not at all Exam Constitutional Vital Signs, click to edit/add: Last Vital Signs Temp 98.7 F 11/16/24 06:00 Pulse 73 11/16/24 09:30 Resp 16 11/16/24 09:30 BP 135/85 11/16/24 09:30 Pulse Ox 99 11/16/24 09:30 O2 Del Method Room Air 11/16/24 09:30 Course Vital Signs Vital signs: Vital Signs Temperature 98.7 F 11/16/24 06:00 Pulse Rate 88 11/16/24 06:00 Respiratory Rate 18 11/16/24 06:00 Blood Pressure 133/93 H 11/16/24 06:00 Pulse Oximetry 98 11/16/24 06:00 Oxygen Delivery Method Room Air 11/16/24 06:00 Temperature 98.7 F 11/16/24 06:00 Pulse Rate 73 11/16/24 09:30 Respiratory Rate 16 11/16/24 09:30 Blood Pressure 135/85 11/16/24 09:30 Pulse Oximetry 99 11/16/24 09:30 Oxygen Delivery Method Room Air 11/16/24 09:30 MDM - Anxiety MDM Narrative Medical decision making narrative: patient presents with anxiety attack. Workup initiated and care transferred to oncoming physician. No history of depression or suicidal thoughts and denies taking any street drugs or stimulants. labs ordered along with dose of vistaril Patient was transitioned to de from Dr. Sung 0700. Labs were placed at 0659. Patient not suicidal homicidal. Patient is having situational Naty/panic attack. Patient marijuana was positive, otherwise lab test showed no acute findings. Patient states he smokes marijuana occasionally. 0920 patient is not suicidal homicidal. Patient feels much better after Vistaril was given. 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 Patient's girlfriend and girlfriend's child has moved in with him recently. Patient states that he gets a anxiety/panic attack maybe once a year. Patient does have a PCP, his cousin Dr. Bassett. He will follow-up with his PCP. Also patient is going to have a phone call at 4 PM tomorrow, with P. He has spoken to them on the phone today. Patient was given a prescription for Vistaril to use if needed. Patient feels much better, given work note. No question at discharge. Patient does not feel anxious, panicky at discharge. No delirium, hallucinating. Patient very nice and appropriate. Lab Data Labs: Lab Results 11/16/24 11/16/24 Range/Units 06:59 07:53 WBC 6.6 (4.0-11.0) 10^3/uL RBC 5.50 (4.70-6.10) 10^6/uL Hgb 17.4 (14.0-18.0) g/dL Hct 48.8 (42.0-54.0) % MCV 88.7 (80.0-94.0) fL MCH 31.6 (25.9-34.0) pg MCHC 35.7 H (29.9-35.2) g/dL RDW 12.8 (11.0-15.0) % Plt Count 231 (150-450) 10^3/uL MPV 10.1 (9.5-13.5) fL Neut % (Auto) 66.2 (43.0-75.0) % Lymph % (Auto) 22.1 (20.5-60.0) % [place] % (Auto) 5.6 (1.7-12.0) % Eos % (Auto) 4.5 (0.9-7.0) % Baso % (Auto) 1.1 (0.2-2.0) % Neut # (Auto) 4.4 (1.4-6.5) 10^3/uL Lymph # (Auto) 1.5 (1.2-3.8) 10^3/uL [place] # (Auto) 0.4 (0.3-0.8) 10^3/uL Eos # (Auto) 0.3 (0.0-0.7) 10^3/uL Baso # (Auto) 0.1 (0.0-0.1) 10^3/uL Abs Immat Gran (auto) 0.03 (0.00-0.03) 10^3/uL Imm/Tot Granulo (auto) 0.5 (0.0-0.5) % Sodium 140 (136-145) mmol/L Potassium 4.2 (3.5-5.1) mmol/L Chloride 103 (98-107) mmol/L Carbon Dioxide 28.9 (21.0-32.0) mmol/L Anion Gap 12.3 BUN 12.0 (7.0-18.0) mg/dL Creatinine 1.14 (0.70-1.30) mg/dL Est GFR ( Amer) >60 (>=60 mL/min/1.73m^2) Est GFR (Non-Af Amer) >60 (>=60 mL/min/1.73m^2) BUN/Creatinine Ratio 10.5 Glucose 107 H (74-106) mg/dL Calcium 9.2 (8.5-10.1) mg/dL Total Bilirubin 0.8 (0.2-1.0) mg/dL AST 42 H (15-37) U/L ALT 82 H (16-63) U/L Alkaline Phosphatase 115 (46-116) U/L Total Protein 7.8 (6.4-8.2) g/dL Albumin 4.1 (3.4-5.0) g/dL Globulin 3.7 g/dL Albumin/Globulin Ratio 1.1 Salicylates <2.8 (<=19.9) mg/dL Urine Opiates Screen Negative (NEGATIVE) Ur Buprenorphine Scrn Negative (NEGATIVE) Ur Oxycodone Screen Negative (NEGATIVE) Urine Methadone Screen Negative (NEGATIVE) Acetaminophen <2.0 L (10.0-30.0) ug/mL Ur Barbiturates Screen Negative (NEGATIVE) U Tricyclic Antidepress Negative (NEGATIVE) Ur Phencyclidine Scrn Negative (NEGATIVE) Ur Amphetamines Screen Negative (NEGATIVE) U Methamphetamines Scrn Negative (NEGATIVE) U Benzodiazepines Scrn Negative (NEGATIVE) Urine Cocaine Screen Negative (NEGATIVE) U Cannabinoids Screen Positive A (NEGATIVE) Ethanol Quant <3 mg/dL Discharge Plan Discharge Stand Alone Forms: Work/School Release Chief Complaint: Anxiety Clinical Impression: Acute anxiety Patient Disposition: Home, Self-Care Time of Disposition Decision: 09:23 Condition: Fair Mode of Transportation: Private Vehicle Prescriptions / Home Meds: New hydroxyzine HCl 50 mg tablet 50 mg PO TID PRN (Reason: itching) Qty: 10 0RF Print Language: Afghan Instructions: Panic Disorder (ED), Anxiety (ED) Additional Instructions: He has Vistaril as needed for anxiety or stress. You will speak to [facility] tomorrow at 4 PM Follow-up with your PCP for further recommendations as well. Referrals: [facility] [Other] - 1 week DEBRA BASSETT [Primary Care Provider, Family Practice] - 1 week [facility] [Physician, Behavioral Health] - 1 week Discharge Date/Time: 11/16/24 09:30
[2024-11-16 07:14] LABS: Basophils Absolute Auto 0.1 10^3/uL (0.0-0.1); Basophils Percent Auto 1.1 % (0.2-2.0); Eosinophils Absolute Auto 0.3 10^3/uL (0.0-0.7); Eosinophils Percent Auto 4.5 % (0.9-7.0); Hematocrit 48.8 % (42.0-54.0); Hemoglobin 17.4 g/dL (14.0-18.0); Immature Granulocytes Abs Auto 0.03 10^3/uL (0.00-0.03); Immature Granulocytes Pct Auto 0.5 % (0.0-0.5); Lymphocytes Absolute Auto 1.5 10^3/uL (1.2-3.8); Lymphocytes Percent Auto 22.1 % (20.5-60.0); Mean Corpuscular HGB Conc 35.7 g/dL (29.9-35.2); Mean Corpuscular Hemoglobin 31.6 pg (25.9-34.0); Mean Corpuscular Volume 88.7 fL (80.0-94.0); Mean Platelet Volume 10.1 fL (9.5-13.5); Monocytes Absolute Auto 0.4 10^3/uL (0.3-0.8); Monocytes Percent Auto 5.6 % (1.7-12.0); Neutrophils Absolute Auto 4.4 10^3/uL (1.4-6.5); Neutrophils Percent Auto 66.2 % (43.0-75.0); Platelet Count 231 10^3/uL (150-450); Red Cell Distribution Width 12.8 % (11.0-15.0); White Blood Count 6.6 10^3/uL (4.0-11.0)
[2024-11-16] MEDS: HYDROXYZINE PAMOATE 25 MG CAPSULE 50 MG PO (07:16)
[2024-11-16 07:27] LABS: Alanine Aminotransferase 82 U/L (16-63); Albumin Globulin Ratio 1.1; Albumin Level 4.1 g/dL (3.4-5.0); Alkaline Phosphatase 115 U/L (46-116); Anion Gap 12.3; Aspartate Amino Transferase 42 U/L (15-37); BUN Creatinine Ratio 10.5; Bilirubin Total 0.8 mg/dL (0.2-1.0); Calcium 9.2 mg/dL (8.5-10.1); Carbon Dioxide 28.9 mmol/L (21.0-32.0); Chloride 103 mmol/L (98-107); Estimated GFR (African America >60 (>=60 mL/min/1.73m^2); Estimated GFR (Non-African Ame >60 (>=60 mL/min/1.73m^2); Globulin 3.7 g/dL; Glucose 107 mg/dL (74-106); Potassium 4.2 mmol/L (3.5-5.1); Sodium 140 mmol/L (136-145); Total Protein 7.8 g/dL (6.4-8.2)
[2024-11-16 07:42] LABS: Salicylate <2.8 mg/dL (<=19.9)
[2024-11-16 07:48] LABS: Acetaminophen <2.0 ug/mL (10.0-30.0)
[2024-11-16 07:59] LABS: Ethanol <3 mg/dL
[2024-11-16 08:30] LABS: Amphetamine Screen Urine NEGATIVE (NEGATIVE); Barbiturates Screen Urine NEGATIVE (NEGATIVE); Benzodiazepines Screen Urine NEGATIVE (NEGATIVE); Buprenorphine Screen Urine NEGATIVE (NEGATIVE); Cannabinoid Screen Urine POSITIVE (NEGATIVE); Cocaine Screen Urine NEGATIVE (NEGATIVE); Methadone Screen Urine NEGATIVE (NEGATIVE); Methamphetamines Screen Urine NEGATIVE (NEGATIVE); Opiate Screen Urine NEGATIVE (NEGATIVE); Oxycodone Screen Urine NEGATIVE (NEGATIVE); Phencyclidine Screen Urine NEGATIVE (NEGATIVE); Tricyclic Antidepressant Urine NEGATIVE (NEGATIVE)
[2024-11-16 09:30] VITALS: BP 135/85; PULSE 73; O2SAT 99
== END 2024-11-16 09:30 | disposition home or self-care (01) ==
PROVIDERS: Emergency Provider Internal Medicine; PCP Family Medicine
DX: F41.9 Anxiety disorder, unspecified (principal); F17.200 Nicotine dependence, unspecified, uncomplicated
CPT/HCPCS: 36415; 80053; 80179; 80307; 80320; 80329; 85025; 99283; Q0177